=== PATIENT | female | born 1970 | race Two or more races ===

== ENCOUNTER → 2018-04-07 | Emergency (ER) | payer OTHER ==
[~2018-04-07] VITALS: Ht 157.5 cm; Wt 90.7 kg
[~2018-04-07] MED LIST: CIPRO500 MG PO; CLONAZEPAM0.5 MG; LEVSIN/SL0.125 MG PO; MECLIZINE HCL25 MG PO; METOCLOPRAMIDE10 MG PO; PERCOCET 5/3251 TAB PO; PNEU16DI2
== END | disposition home or self-care (01) ==
LOC: ER 10:25
DX: R42 Dizziness and giddiness (principal)

== ENCOUNTER 2020-08-23 17:01 | Emergency (ER) | payer OTHER ==
[~2020-08-23] VITALS: Ht 157.5 cm; Wt 100.7 kg
[2020-08-23] MEDS ORDERED: CLONAZEPAM1 MG PO (17:32)
[2020-08-23] MEDS ORDERED: METOPROLOL SUCC25 MG PO (17:32)
[2020-08-23] MEDS ORDERED: ALPRAZOLAM0.25 MG PO (17:32)
[2020-08-23] MEDS ORDERED: PROAIR HFA8.5 GM IH (17:33)
== END 2020-08-23 22:12 | disposition home or self-care (01) ==
LOC: ER 17:01
DX: J45.998 Other asthma (principal); Z11.52 Encounter for screening for COVID-19